=== PATIENT | female | born 1960 | race Caucasian/White ===

== ENCOUNTER 2020-03-10 07:09 | Outpatient (NON) | payer BC, SELFPAY ==
[2020-03-11 01:24] LABS: SARS-CoV-2 RNA PCR Negative
== END 2020-03-10 07:10 ==
PROVIDERS: Visit Provider Nurse Practitioner Family
DX: Z20.828 Contact with and (suspected) exposure to other viral communicable diseases (principal); R51.9 Headache, unspecified; R19.7 Diarrhea, unspecified
CPT/HCPCS: 87635; C9803; U0003

== ENCOUNTER 2020-04-12 06:50 | Outpatient (NON) | payer BC, SELFPAY ==
[2020-04-12 21:45] LABS: SARS-CoV-2 RNA PCR Positive
== END 2020-04-12 06:51 ==
LOC: ANHCOVIDDT 06:53
PROVIDERS: PCP Nurse Practitioner Family; Visit Provider Nurse Practitioner Family
DX: U07.1 COVID-19 (principal)
CPT/HCPCS: C9803; U0003; U0005